=== PATIENT | female | born 1965 | race Caucasian/White ===

== ENCOUNTER 2020-08-17 04:46 | Emergency (ER) | payer OTHER ==
[~2020-08-17] VITALS: Ht 157.5 cm; Wt 81.7 kg
[2020-08-17] MEDS ORDERED: FLEXERIL PO (05:23)
[2020-08-17] MEDS ORDERED: ACYCLOVIR 400400 MG PO (05:23)
[2020-08-17] MEDS ORDERED: TOPAMAX100 MG PO (05:24)
[2020-08-17] MEDS ORDERED: ZOLOFT100 MG PO (05:24)
[2020-08-17] MEDS ORDERED: NEURONTIN300 MG PO (05:24)
[2020-08-17] MEDS ORDERED: SUMATRIPTAN SU100 MG PO (05:24)
[2020-08-17] MEDS ORDERED: HYDROCODON-ACE1 EAC8 PO (05:25)
[2020-08-17] MEDS ORDERED: HYDROCODON-ACE1 EAC7 PO (06:01)
[2020-08-17 06:56] VITALS: BP 118/83
== END 2020-08-17 06:57 | disposition home or self-care (01) ==
LOC: ER 04:46
DX: S52.501A Unspecified fracture of the lower end of right radius, initial encounter for closed fracture (principal); S52.201A Unspecified fracture of shaft of right ulna, initial encounter for closed fracture; F32.9 Major depressive disorder, single episode, unspecified; G62.9 Polyneuropathy, unspecified; Z79.899 Other long term (current) drug therapy; Z88.0 Allergy status to penicillin; W18.09XA Striking against other object with subsequent fall, initial encounter; Y93.89 Activity, other specified; Y92.89 Other specified places as the place of occurrence of the external cause; Y99.8 Other external cause status